=== PATIENT | male | born 1990 ===

== ENCOUNTER 2025-01-09 09:56 | Emergency (ER) | payer OTHER ==
[2025-01-09 10:15] LABS: BASOPHILS PERCENT AUTO 0.4 % (0.0-1.0); EOSINOPHILS PERCENT AUTO 1.8 % (1.0-3.0); LYMPHOCYTES PERCENT AUTO 24.6 % (20.5-50.1); MONOCYTES PERCENT AUTO 9.4 % (2-8); NEUTROPHILS PERCENT AUTO 63.8 % (42.2-75.2); PLATELET COUNT,PLT 252 10^3/uL (150-450); RED BLOOD CELL COUNT 5.02 10^6/uL (4.6-6.2); WHITE BLOOD CELL COUNT,WBC 6.8 10^3/uL (5.0-10.0)
[2025-01-09 10:36] LABS: A/G RATIO 1.0; ALANINE AMINOTRANSFERASE,ALT 47 U/L (16-63); ASPARTATE AMNIOTRANSFERASE,AST 22 U/L (15-37); BILIRUBIN TOTAL 0.5 mg/dL (0.2-1.0); BLOOD UREA NITROGEN,BUN 11 mg/dL (7-18); CARBON DIOXIDE,CO2 29 mmol/L (21-32); CHLORIDE,CL 101 mmol/L (98-107); CREATININE 1.10 mg/dL (0.70-1.30); GLUCOSE RANDOM 131 mg/dL (70-99); POTASSIUM,K 3.9 mmol/L (3.5-5.1); PROTEIN TOTAL,TP 8.4 g/dL (6.4-8.2); SODIUM,NA 140 mmol/L (136-145)
[2025-01-09 10:37] LABS: ESTIMATED GFR 91 mL/min (>=60)
== END 2025-01-09 11:53 | disposition home or self-care (01) ==
LOC: DL.ED 09:56
DX: R07.89 Other chest pain (principal); Z88.0 Allergy status to penicillin
CPT/HCPCS: 36415; 71045; 80053; 84484; 85025; 85379; 86140; 93005; 93010; 94640; 99284; 99285; A9270; J7620